=== PATIENT | male | born 1960 | race Caucasian/White ===

== ENCOUNTER 2017-12-04 16:31 | Emergency (ER) | payer OTHER ==
[2017-12-04 16:46] VITALS: BP 117/68; PULSE 68; RESP 20; TEMP 98.4; O2SAT 97
[2017-12-04] MEDS ORDERED: Fluorescein 1 mg Ophthalmic Strip OS ONE (17:01)
[2017-12-04] MEDS ORDERED: Tetracaine 0.5% Ophth (OR ONLY) OD ONE (17:01)
[2017-12-04] MEDS ORDERED: Tetracaine 0.5% Ophth (OR ONLY) ONE (17:07)
[2017-12-04] MEDS ORDERED: Fluorescein 1 mg Ophthalmic Strip ONE (17:08)
[2017-12-04] MEDS ORDERED: Tetanus/Diphtheria Toxoids 0.5 ml Syringe IM ONE ×2 (17:14→17:26)
[2017-12-04] MEDS ORDERED: Naproxen 550 mg Tab PO STA (17:14)
--- NOTE | 2017-12-04 17:17 | C.PDOC ---
History Of Present Illness 57 year old male presents to the ER complaining of left eye irritation and redness since yesterday. Patient thinks cement debris flew into his left eye while he was working. He denies other injuries, visual changes, headache, dizziness, eye discharge. He is unsure about tetanus vaccination status. Time Seen by Provider: 12/04/17 16:48 Chief Complaint (Nursing): Eye Problem History Per: Patient History/Exam Limitations: no limitations Onset/Duration Of Symptoms: Days Current Symptoms Are (Timing): Still Present Severity: Mild Wears Contact Lens?: No Past Medical History Reviewed: Historical Data, Nursing Documentation, Vital Signs Vital Signs: Last Vital Signs Temp 98.4 F 12/04/17 16:42 Pulse 68 12/04/17 16:42 Resp 20 12/04/17 16:42 BP 117/68 12/04/17 16:42 Pulse Ox 97 12/04/17 18:36 - Medical History PMH: No Chronic Diseases Surgical History: No Surg Hx Family History: States: No Known Family Hx - Social History Hx Alcohol Use: No Hx Substance Use: No - Immunization History Hx Tetanus Toxoid Vaccination: No Hx Influenza Vaccination: No Hx Pneumococcal Vaccination: No Review Of Systems Eyes: Positive for: Redness (Left eye irritation and redness). Negative for: Vision Change, Other (Eye discharge) Respiratory: Negative for: Cough, Shortness of Breath Skin: Negative for: Rash Neurological: Negative for: Headache, Dizziness Physical Exam - Physical Exam Appears: Well, Non-toxic, No Acute Distress Skin: Normal Color, Warm, Dry, No Rash Head: Atraumatic, Normacephalic Eye(s): bilateral: PERRL, EOMI (no pain with EOM movement ), left: Other (Left sclera mildly injected, 0.5cm diameter corneal abrasion in the center of the iris, no foreign bodies) Oral Mucosa: Moist Neck: Supple Cardiovascular: Rhythm Regular Respiratory: Normal Breath Sounds, No Rales, No Rhonchi, No Wheezing Neurological/Psych: Oriented x3 Gait: Steady ED Course And Treatment O2 Sat by Pulse Oximetry: 97 (RA) Pulse Ox Interpretation: Normal Progress Note: Left eye visualized with fluorescein stain and under Wood's Lamp. 1 drop of Tetracaine instilled into left eye by me, patient tolerated well. Tetanus vaccination IM given. Rxs for antibiotic eye drops and naprosyn given. Patient instructed to follow up with ophthamology in 1-2 days. He understands he should return to ED if symptoms worsen. Reevaluation Time: 17:15 Reassessment Condition: Improved Disposition Counseled Patient/Family Regarding: Studies Performed, Diagnosis, Need For Followup, Rx Given - Disposition Referrals: Sudeep Bonilla [Staff Provider] - Disposition: HOME/ ROUTINE Disposition Time: 17:15 Condition: STABLE Additional Instructions: FOLLOW UP WITH THE EYE DOCTOR IN 1-2 DAYS USE MEDICATIONS DIRECTED RETURN TO EMERGENCY ROOM IF SYMPTOMS WORSEN SEGUIMIENTO CON EL DOCTOR DEL BRIANNA EN 1-2 SADLER USE MEDICAMENTOS SEGN LO INDICADO REGRESE AL TAZ DE EMERGENCIA SI LOS SNTOMAS EMPEORAN Prescriptions: Naproxen 375 mg PO BID PRN #20 tablet PRN Reason: pain Ofloxacin Ophth 0.3% [Ocuflox Ophth 0.3%] 1 drop GT Q4 #1 bottle Instructions: Corneal Abrasion (DC) Forms: Parrable (Cypriot) Print Language: LAO - POA Present On Arrival: None - Clinical Impression Clinical Impression: Corneal abrasion, Left eye pain - Scribe Statement The provider has reviewed the documentation as recorded by the Scribe Anupama Diaz All medical record entries made by the Scribe were at my direction and personally dictated by me. I have reviewed the chart and agree that the record accurately reflects my personal performance of the history, physical exam, medical decision making, and the department course for this patient. I have also personally directed, reviewed, and agree with the discharge instructions and disposition.
[2017-12-04] MEDS ORDERED: Naproxen 550 mg Tab PO ONE (17:25)
== END 2017-12-04 17:28 | disposition home or self-care (01) ==
LOC: C.ER 16:31
DX: S05.02XA Injury of conjunctiva and corneal abrasion without foreign body, left eye, initial encounter (principal); X58.XXXA Exposure to other specified factors, initial encounter; H57.12 Ocular pain, left eye